=== PATIENT | male | born 2000 | race Caucasian/White ===

== ENCOUNTER 2023-09-01 13:06 | Emergency (ER) | payer OTHER ==
[~2023-09-01] VITALS: Ht 180.3 cm; Wt 113.0 kg
[2023-09-01 13:12] VITALS: O2SAT 100
[2023-09-01] MEDS ORDERED: SULF1TAB48 MT ×2 (14:04)
[2023-09-01] MEDS ORDERED: CEPH500T MT ×2 (14:04)
[2023-09-01] MEDS ORDERED: BACITRACIN ZINC OINT UDPKT TOP ONE (14:30)
[2023-09-01] MEDS ORDERED: LIDOCAINE HCL/PF 1% 10 MG/ML 5ML VIAL INFIL ONE (14:30)
[2023-09-01] MEDS ORDERED: ACETAMINOPHEN 325MG TABLET PO ONE (16:00)
[2023-09-01] MEDS ORDERED: NAPR-1176 MT (16:34)
[2023-09-01 17:24] VITALS: BP 127/78; PULSE 98; RESP 19; TEMP 98.3
== END 2023-09-01 17:25 | disposition home or self-care (01) ==
LOC: ER 13:06
DX: S61.412A Laceration without foreign body of left hand, initial encounter (principal); X58.XXXA Exposure to other specified factors, initial encounter; Y93.89 Activity, other specified; Y92.89 Other specified places as the place of occurrence of the external cause; Y99.8 Other external cause status
CPT/HCPCS: 99282; 12004; J3490